=== PATIENT | female | born 1945 | race Caucasian/White ===

== ENCOUNTER 2017-02-04 11:50 | Day surgery (SDC) | payer OTHER, MEDICARE ==
[2017-02-02 09:25] VITALS: BMI 21.7
--- NOTE | 2017-02-04 07:12 | HP ---
History & Physical Update - History History: No Change - Physical Physical: No Change - Assessment Assessment: No Change - Plan Plan: No Change (Initial H&P completed by Radha Harden NP 01/27/17 Lumbar back pain with radiation down both legs below her knees (L>R))
[~2017-02-04 11:50] MED LIST: oxyCODONE HCL 10 MG SUSTAINED ACTING TABLET PO STA
[2017-02-04] MEDS ORDERED: oxyCODONE HCL 10 MG SUSTAINED ACTING TABLET ONE (12:31)
[2017-02-04] MEDS ORDERED: methylPREDNISolone ACET (DEPO) 40 MG/1 ML VIAL ONE (13:03)
[2017-02-04] MEDS ORDERED: LIDOCAINE 1%/EPI 1:100000 (20 ML MULTI DOSE VIAL) ONE (13:04)
[2017-02-04] MEDS ORDERED: THROMBIN (BOVINE) 5,000 UNIT VIAL TP ONE ×2 (13:04→14:32)
[2017-02-04] MEDS ORDERED: BUPIVACAINE HCL/PF 2.5 MG/ML - 30 ML VIAL IJ ONE (13:04)
[2017-02-04] MEDS ORDERED: oxyCODONE HCL 5 MG TABLET PO PRN (13:18)
[2017-02-04] MEDS ORDERED: ONDANSETRON 4 MG/2 ML VIAL IVPUSH PRN (13:18)
[2017-02-04] MEDS ORDERED: MIDAZOLAM HCL 2 MG/2 ML SINGLE DOSE VIAL ONE (13:27)
[2017-02-04] MEDS ORDERED: LACTATED RINGERS SOLUTION 1,000 ML IV SCH (13:30)
[2017-02-04] MEDS ORDERED: methylPREDNISolone ACET (DEPO) 40 MG/1 ML VIAL IM ONE (14:30)
[2017-02-04] MEDS ORDERED: BUPIVACAINE HCL/PF (5 MG/ML) 30 ML VIAL IJ ONE (14:30)
[2017-02-04] MEDS ORDERED: ONDANSETRON 4 MG/2 ML VIAL ONE (15:39)
--- NOTE | 2017-02-04 15:56 | OP ---
Operative Note - Note: Operative Date: 02/04/17 Pre-Operative Diagnosis: spinal stenosis Operation: laminectomy of L2-L4 with microdisectomy Surgeon: Ancelmo Waiet Copy Operator: Tatyana Saunders Anesthesiologist/WHARF LABORER: Epifanio العراقي Anesthesia: Spinal Specimens Removed: disc Estimated Blood Loss (mls): 20 Fluid Volume Replaced (mls): 900 Operative Report Dictated: Yes
--- NOTE | 2017-02-04 15:57 | SURG ---
Surgery [employer] War[employer] Combatant Crewman Note Special Warfare Combatant Crewman: Tatyana Saunders PA-C Date of Service: 02/04/17 Diagnosis: spinal stenosis Procedure: laminectomy of L2-L4, microdisectomy I was present for the entirety of the operative procedure. For further detail, please refer to operative report. Visit type - Case Type Case Type: Scheduled Admission - Emergency Emergency Visit: No - New patient This patient is new to me today: Yes Date on this admission: 02/04/17 - Critical Care Critical Care patient: No
[2017-02-04] MEDS ORDERED: PROMETHAZINE HCL 25 MG/1 ML VIAL ONE (16:31)
--- NOTE | 2017-02-04 16:33 | OP ---
DATE OF OPERATION: 02/04/2017 PREOPERATIVE DIAGNOSIS: Spinal stenosis at L2-3 and L3-4. POSTOPERATIVE DIAGNOSIS: Spinal stenosis at L2-3 and L3-4. PROCEDURE PERFORMED: Laminectomy at L2-3 and L3-4. SURGEON: Ancelmo Waite MD BRUSH PAINTER: LINDSAY Nichole ESTIMATED BLOOD LOSS: 50 mL INTRAVENOUS FLUIDS: Per Anesthesia. ANESTHESIA: Spinal. COMPLICATIONS: None. DISPOSITION: Patient was brought to the PACU in stable condition. INDICATION FOR SURGERY: The patient is a 71-year-old female who has been suffering from pain from her back down her legs. X-rays and MRI were completed which noted that she had spinal stenosis at L2-3 and L3-4. She had gone through an exhaustive course of treatment for this, which included medications, physical therapy, as well as injections. Unfortunately, her pain continued to persist despite all this. At this point, risks, benefits, and alternatives were discussed, and the patient consented to surgery. DESCRIPTION OF OPERATION: Patient was brought to the operating room by anesthesia staff. After appropriate patient identification was performed, spinal anesthesia was given. Appropriate anesthetic lines were placed. SCDs were placed on the patient. Patient was able to position herself prone onto the OR table. Two needles were placed into her back to thelma off the L2 to L4 segments. An x-ray was taken to confirm this as correct. The needles were removed, and 10 mL of lidocaine with epinephrine were injected into her back at this time. Her back was prepped and draped in a sterile manner. At this point, timeout was completed. An incision was made from the top of L2 down to the bottom of L4. Dissection was carried down to the fascia. The fascia was split open at this time, and appropriate retractors were then placed in. A spinal needle was placed onto the L3 lamina. An x-ray was taken to confirm this as correct. The needle was removed, and the microscope was brought in. The interspinous ligament at L2-3 and L3-4 was removed. The spinous process at L3 was removed. A bur was used to remove the lamina of L3. A complete decompression was performed such that by the end of the procedure, the L3 and the L4 nerve roots appeared to be well decompressed. All bleeding was well controlled at this time. Steroid was placed over the nerve root. FloSeal was placed over that. The fascia was closed with a No. 1 Vicryl suture. The subcutaneous tissues were closed with 2-0 Vicryl suture. The skin was closed with 3-0 Monocryl suture. Dermabond was applied. Steri-Strips were applied. Sterile dressing applied. Patient was placed supine on the OR bed and brought to the PACU in stable condition. Jorge AMES/[id number]
[2017-02-04 17:04] VITALS: TEMP 97.7
[2017-02-04 19:27] VITALS: BP 112/72; PULSE 72
--- NOTE | 2017-02-08 13:12 | PATH ---
Surgical Pathology Report Patient Name: ROLAND YEN [facility]. Rec. #: [id number] /Age/Gender: 1945 (Age: 71) / F Account: [id number] Location: [facility] Taken: 02/04/2017 Received: 02/04/2017 Reported: 02/08/2017 Physicians: Ancelmo Waite M.D. Specimen(s) Received DISC L3-4 Clinical History Spinal stenosis Final Diagnosis DISC, L3-4, LAMINECTOMY: FRAGMENTS OF FIBROCARTILAGINOUS TISSUE WITH DEGENERATIVE CHANGES. Electronically Signed Philly Warner M.D. Gross Description Received in formalin labeled "disc L3-4," is a 1.0 x 0.7 x 0.2 cm aggregate of tobar fragments of fibrocartilaginous tissue. The specimen is submitted in toto in one cassette. 02/05/201702/05/2017
== END 2017-02-04 18:30 | disposition home or self-care (01) ==
LOC: FASU 11:50
PROVIDERS: ATTEND Orthopaedic Surgery Orthopaedic Surgery of the Spine
PROC: 01NB0ZZ Release Lumbar Nerve, Open Approach (ICD-10-PCS; principal; 2017-02-04 13:40)
DX: M48.061 Spinal stenosis, lumbar region without neurogenic claudication (principal)
CPT/HCPCS: 72100-TC; 76000-TC; 88304-TC; 94760